=== PATIENT | female | born 1985 | race Caucasian/White ===

== ENCOUNTER 2018-02-20 21:24 | Emergency (ER) | payer OTHER ==
--- NOTE | 2018-02-20 21:35 | PDOC ---
History of Present Illness - General Chief Complaint: Chest Pain Stated Complaint: CHEST PAIN Time Seen by Provider: 02/20/18 21:32 History Source: Patient Exam Limitations: No Limitations - History of Present Illness Initial Comments: 02/20/18 23:40 Epigastric/lower sternal chest pain. Patient said it began approximately 3 hours after eating baby back ribs with barbecue sauce. Pain is sharp and patient said his difficulty finding a comfortable position. Patient denies history of similar pain in the past. Patient vomited post arrival in the emergency room and otherwise is feeling better at this time. Patient denies history of gallstones our family history of gallstones. Patient denies any shortness of breath, and diaphoresis or radiation. PAST MEDICAL HISTORY: no significant history PAST SURGICAL HISTORY: no significant history FAMILY HISTORY: no pertinant history SOCIAL HISTORY: Pt lives with family and is employed. MEDICATIONS: reviewed ALLERGIES: As per nursing notes Review of Systems General: No fevers or chills, no weakness, no weight loss HEENT: No change in vision. No sore throat,. No ear pain CardioVascular: No chest pain or shortness of breath Respiratory:No cough, or wheezing. Gastrointestinal: no nausea, vomitting, diarrhea or constipation, No rectal bleeding Genitourinary: No dysuria, hematuria, or frequency Musculoskeletal: No joint or muscle pain or swelling Neurologic: No headache, vertigo, dizziness or loss of consciousness Psychiatric: nor depression Skin: No rashes or easy bruising Endocrine: no increased thirst or abnormal weight change Allergic: no skin or latex allergy All other systems reviewed and normal Exam: General: Well-nourished well-developed individual, no acute distress HEENT: Throat: Normal, tonsils normal, no erythema or exudate Neck: Supple, no meningeal signs, no lymphadenopathy Eyes::Pupils equal reactive and round, extraocular motion intact Chest: Nontender to palpation Cardiac: S1-S2 normal, regular rate and rhythm, no murmurs rubs or gallops Respiratory: Lungs clear to auscultation bilateral Abdomen: Soft, nondistended, normal bowel sounds, mildly tender to palpation epigastric and right upper quadrant, negative Wilkins's signs Extremities: Warm, dry, no cyanosis, clubbing, or edema Skin: No rashes Neuro: Alert and oriented x3, CN II - XII intact, nonfocal exam with normal strength, normal sensation, normal reflexes, normal gait, Psych: Normal mood and affect EKG shows normal sinus rhythm with a prolonged QT otherwise no acute ST-T wave changes Ultrasound report from tach is there are several small gallstones with sludge in the gallbladder no pericholecystic fluid duct dilatation or evidence of acute cholecystitis. Patient discharged home will follow-up with her primary care doctor and a surgeon if symptoms persist and become worse. Past History - Past Medical History Allergies/Adverse Reactions: Allergies Allergy/AdvReac Type Severity Reaction Status Date / Time No Known Allergies Allergy Verified 02/20/18 21:25 Home Medications: Ambulatory Orders Vit,Justin 74/Iron/Folic [ Low Iron Tablet] 1 each PO DAILY ED Treatment Course - LABORATORY CBC & Chemistry Diagram: 02/20/18 22:14 02/20/18 22:14 *DC/Admit/Observation/Transfer Diagnosis at time of Disposition: Cholelithiasis Qualifiers: Cholelithiasis location: gallbladder Cholecystitis presence: without cholecystitis Biliary obstruction: without biliary obstruction Qualified Code(s) : K80.20 - Calculus of gallbladder without cholecystitis without obstruction - Discharge Dispostion Disposition: HOME Condition at time of disposition: Good - Referrals Referrals: Eulalia Cruz [Primary Care Provider] - - Patient Instructions Additional Instructions: Limit the fat in your diet as any increase in fat in your diet will cause the gallbladder to give you pain and difficulty. Follow-up with a surgeon if symptoms become persistent and you decide to have your gallbladder out. Return to the emergency department immediately with ANY new, persistent or worsening symptoms. Continue any medications as previously prescribed by your physician. . Please make sure your doctor reviews the results of your emergency evaluation. Thank you for coming to the Emergency Department today for your care. It was a pleasure to see you today. Please note that your evaluation is INCOMPLETE until you follow-up with your doctor. - Post Discharge Activity
[2018-02-20 21:42] VITALS: BP 133/81; PULSE 72; TEMP 97.7; BMI 32.0
[2018-02-20 22:33] LABS: BASO % 0.2 % (0-2.0); EOS % 0.6 % (0-4.5); HEMATOCRIT 42.1 % (32.4-45.2); HEMOGLOBIN 14.5 GM/dl (10.7-15.3); LYMPH % 18.5 % (8-40); MCH 30.7 pg (25.7-33.7); MCHC 34.5 g/dl (32.0-36.0); MEAN PLT VOLUME 11.1 fl (7.5-11.1); MONO % 6.2 % (3.8-10.2); NEUT % 74.5 % (42.8-82.8); PLATELET COUNT 196 K/MM3 (134-434); RBC 4.73 M/mm3 (3.60-5.2); RDW 11.7 % (11.6-15.6); WHITE BLOOD COUNT 8.5 K/mm3 (4.0-10.8)
[2018-02-20 22:43] LABS: ALK PHOS 32 U/L (32-92); ANION GAP 9 (8-16); BILIRUBIN,TOTAL 0.4 mg/dl (0.2-1.0); BLOOD UREA NITROGEN 13 mg/dl (7-18); CALCIUM 9.1 mg/dl (8.4-10.2); CHLORIDE 100 mmol/L (98-107); CO2 24 mmol/L (22-28); CREATININE 0.8 mg/dl (0.6-1.3); GLUCOSE,RANDOM 104 mg/dl (74-106); POTASSIUM 3.6 mmol/L (3.5-5.1); SGOT/AST 22 U/L (10-42); SGPT/ALT 33 U/L (10-40); SODIUM 133 mmol/L (136-145)
[2018-02-21 00:20] LABS: LIPASE 87 U/L (73-393)
--- NOTE | 2018-02-22 09:42 | EKG ---
Test Reason : Blood Pressure : / mmHG Vent. Rate : 072 BPM Atrial Rate : 072 BPM P-R Int : 152 ms QRS Dur : 086 ms QT Int : 440 ms P-R-T Axes : 052 036 013 degrees QTc Int : 481 ms NORMAL SINUS RHYTHM POSSIBLE LEFT ATRIAL ENLARGEMENT PROLONGED QT NONSPECIFIC ST ABNORMALITY ABNORMAL ECG NO PREVIOUS ECGS AVAILABLE Confirmed by LACHELLE GOMEZ MD ([id number]) on 02/22/2018 9:42:23 AM Referred By: DR SMITH Confirmed By:LACHELLE GOMEZ MD
== END 2018-02-20 23:42 | disposition home or self-care (01) ==
LOC: FER 21:24
DX: K80.20 Calculus of gallbladder without cholecystitis without obstruction (principal); I45.81 Long QT syndrome
CPT/HCPCS: 36415; 76705-TC; 80053; 82550; 83690; 84484; 85025; 85379; 93005; 99284-25